=== PATIENT | female | born 1990 | race Hispanic/Latino ===

== ENCOUNTER 2017-10-04 03:13 | Emergency (ER) | payer SELFPAY ==
[2017-10-04] MEDS ORDERED: SODIUM CHLORIDE 0.9% 1000ML 1,000 ML IV ONE (03:27)
[2017-10-04] MEDS ORDERED: SODIUM CHLORIDE 0.9% 500ML 500 ML IV ONE (03:28)
[2017-10-04 03:39] LABS: BASOPHILS % (AUTO) 0.4 % (0.0-5.0); EOSINOPHILS % (AUTO) 4.9 % (0.0-8.0); HEMATOCRIT 37.8 % (36-48); LYMPHOCYTES % (AUTO) 44.7 % (21.0-51.0); MEAN CORPUSCULAR HEMOGLOBIN 27.3 pg (27.0-33.0); MEAN CORPUSCULAR HGB CONC 33.9 g/dL (32.0-36.0); MEAN CORPUSCULAR VOLUME 80.6 fL (79-99); MONOCYTES % (AUTO) 7.3 % (3.0-13.0); NEUTROPHILS % (AUTO) 42.7 % (40.0-77.0); PLATELET COUNT (AUTO) 174 K/uL (130-400); RED BLOOD CELL COUNT(AUTO) 4.69 MIL/uL (4.00-5.50); RED CELL DISTRIBUTION WIDTH 12.2 % (11.0-15.5); WHITE BLOOD COUNT (AUTO) 5.8 K/uL (4.8-10.8)
[2017-10-04 03:47] LABS: CREATININE 0.8 mg/dL (0.5-1.5); POTASSIUM 3.7 mmol/L (3.5-5.1)
[2017-10-04 03:51] LABS: ALBUMIN 3.7 g/dL (3.5-5.0); BILIRUBIN,TOTAL 0.4 mg/dL (0.2-1.0); TOTAL PROTEIN, SERUM 7.3 g/dL (6.0-8.3)
[2017-10-04] MEDS ORDERED: KETOROLAC TROMETHAMINE 30MG/ML ONE (03:54)
[2017-10-04 03:59] LABS: APPEARANCE,URINE Cloudy (CLEAR); BILIRUBIN,URINE Negative (NEGATIVE); COLOR,URINE Yellow (YELLOW); GLUCOSE, URINE (UA) Negative (NEGATIVE); KETONES,URINE Negative (NEGATIVE); LEUKOCYTE ESTERASE ,URINE Trace (NEGATIVE); NITRATE,URINE Negative (NEGATIVE); OCCULT BLOOD,URINE Nonhemolyzed Trace (NEGATIVE); PH,URINE 5.5 (5.0-8.0); PROTEIN,URINE Negative (NEGATIVE)
[2017-10-04 04:13] LABS: BACTERIA,URINE Few /HPF (None Seen); RBC,URINE 0-1 /HPF (0-1); SQUAMOUS EPITHELIAL CELL,UR Moderate /LPF (0-2); WBC,URINE 0-1 /HPF (0-1)
== END 2017-10-04 05:33 | disposition home or self-care (01) ==
LOC: EDH 03:13
DX: K80.50 Calculus of bile duct without cholangitis or cholecystitis without obstruction (principal); K80.20 Calculus of gallbladder without cholecystitis without obstruction; Z98.890 Other specified postprocedural states
CPT/HCPCS: 36415; 76705; 80053; 81001; 83690; 84703; 85025; 96361; 96374; 99285; J1885; J7030; J7040

== ENCOUNTER 2018-01-19 16:47 | Emergency (ER) | payer OTHER | END 2018-01-19 17:44 | disposition home or self-care (01) | LOC: EDH 16:47 | DX: J06.9 Acute upper respiratory infection, unspecified (principal) | CPT/HCPCS: 99281 ==

== ENCOUNTER 2018-08-21 08:04 | Emergency (ER) | payer OTHER | END 2018-08-21 09:39 | disposition home or self-care (01) | LOC: EDH 08:04 | DX: R11.2 Nausea with vomiting, unspecified (principal); R63.0 Anorexia; Z90.49 Acquired absence of other specified parts of digestive tract | CPT/HCPCS: 99281 ==

== ENCOUNTER 2020-10-18 11:52 | Day surgery (SDC) | payer MEDICAID ==
[~2020-10-18] VITALS: Ht 157.5 cm; Wt 98.1 kg
[2020-10-18] VITALS (17 sets, daily range): BP systolic 101–131; BP diastolic 43–86
[2020-10-18 12:41] LABS: BASOPHILS % (AUTO) 0.4 % (0.0-5.0); EOSINOPHILS % (AUTO) 0.8 % (0.0-8.0); HEMATOCRIT 40.2 % (36-48); MEAN CORPUSCULAR HEMOGLOBIN 27.7 pg (27.0-33.0); MEAN CORPUSCULAR HGB CONC 34.1 g/dL (32.0-36.0); MEAN CORPUSCULAR VOLUME 81.4 fL (79-99); MONOCYTES % (AUTO) 4.2 % (3.0-13.0); NEUTROPHILS % (AUTO) 58.4 % (40.0-77.0); PLATELET COUNT (AUTO) 194 K/uL (130-400); RED BLOOD CELL COUNT(AUTO) 4.94 MIL/uL (4.00-5.50); RED CELL DISTRIBUTION WIDTH 11.9 % (11.0-15.5); WHITE BLOOD COUNT (AUTO) 5.3 K/uL (4.8-10.8)
[2020-10-18] MEDS ORDERED: MONT10TA32 PO (12:57)
[2020-10-18] MEDS ORDERED: BENR30AU SQ (12:57)
[2020-10-18] MEDS ORDERED: FLUT1DIS4 IH (12:57)
[2020-10-18] MEDS ORDERED: [UNRECOGNIZED DRUG - CODE] PO (12:57)
[2020-10-18] MEDS ORDERED: ALBU8.5H8 IH (12:57)
[2020-10-18] MEDS ORDERED: LACTATED RINGERS 1000ML 1,000 ML IV ONE (13:03)
[2020-10-18] MEDS ORDERED: DEXAMETHASONE SOD PHOSPHATE 10MG/ML 1ML VIAL ONE (13:23)
[2020-10-18] MEDS ORDERED: LIDOCAINE PF 2% 5ML ABBOJECT ONE (13:23)
[2020-10-18] MEDS ORDERED: MIDAZOLAM HCL 1 MG/ML 2ML VIAL ONE (13:24)
[2020-10-18] MEDS ORDERED: PROPOFOL 10 MG/ML 20ML VIAL IV ONE (13:25)
[2020-10-18] MEDS ORDERED: ONDANSETRON HCL 4 MG/2 ML VIAL ONE ×2 (13:25→14:09)
[2020-10-18] MEDS ORDERED: FENTANYL CITRATE PF 50 MCG/1 ML 2ML VIAL ONE (13:25)
[2020-10-18] MEDS ORDERED: MEPERIDINE-PF 25 MG/ML SYG ONE (13:28)
[2020-10-18] MEDS ORDERED: METOCLOPRAMIDE 10 MG/2 ML VIAL ONE (14:09)
== END 2020-10-18 15:50 | disposition home or self-care (01) ==
LOC: DAH 11:52
PROVIDERS: ATTEND Obstetrics & Gynecology
DX: O03.4 Incomplete spontaneous abortion without complication (principal); J45.909 Unspecified asthma, uncomplicated
CPT/HCPCS: 36415; 59812; 84703; 85025; 86850; 86900; 86901; 87426; A4215; A4221; A4222; A4223; A4351; A4649; A4663; A7002; J1100; J2001; J2175; J2250; J2405 ×2; J2704; J2765; J3010; J7030; J7120

== ENCOUNTER 2020-10-28 22:56 | Emergency (ER) | payer MEDICAID ==
[~2020-10-28 22:56] MED LIST: ALBU8.5H8 IH; BENR30AU SQ; FLUT1DIS4 IH; MONT-39 PO; [UNRECOGNIZED DRUG - CODE] PO
[2020-10-28] MEDS ORDERED: ACETAMINOPHEN 500 MG TABLET ONE (23:18)
[2020-10-28 23:47] LABS: BASOPHILS % (AUTO) 0.2 % (0.0-5.0); HEMATOCRIT 38.8 % (36-48); LYMPHOCYTES % (AUTO) 23.1 % (21.0-51.0); MEAN CORPUSCULAR HEMOGLOBIN 27.4 pg (27.0-33.0); MEAN CORPUSCULAR VOLUME 80.5 fL (79-99); MONOCYTES % (AUTO) 8.5 % (3.0-13.0); NEUTROPHILS % (AUTO) 67.2 % (40.0-77.0); PLATELET COUNT (AUTO) 157 K/uL (130-400); RED BLOOD CELL COUNT(AUTO) 4.82 MIL/uL (4.00-5.50); RED CELL DISTRIBUTION WIDTH 11.9 % (11.0-15.5); WHITE BLOOD COUNT (AUTO) 5.1 K/uL (4.8-10.8)
[2020-10-28 23:58] LABS: CREATININE 0.9 mg/dL (0.5-1.5); POTASSIUM 3.3 mmol/L (3.5-5.1)
[2020-10-29 00:02] LABS: ALBUMIN 3.9 g/dL (3.5-5.0); BILIRUBIN,TOTAL 0.7 mg/dL (0.2-1.0); TOTAL PROTEIN, SERUM 7.8 g/dL (6.0-8.3)
[2020-10-29 00:08] LABS: APPEARANCE,URINE Turbid (CLEAR); BILIRUBIN,URINE Small (NEGATIVE); COLOR,URINE Dark Yellow (YELLOW); GLUCOSE, URINE (UA) Negative (NEGATIVE); KETONES,URINE Trace mg/dL (NEGATIVE); LEUKOCYTE ESTERASE ,URINE Small (NEGATIVE); NITRATE,URINE Negative (NEGATIVE); OCCULT BLOOD,URINE Large (NEGATIVE); PH,URINE 5.5 (5.0-8.0); PROTEIN,URINE POS 1+ mg/dL (NEGATIVE)
[2020-10-29] MEDS ORDERED: KCL 20 MEQ ERTAB PO ONE (00:55)
[2020-10-29 00:57] LABS: AMORPHOUS SEDIMENT,UR Many /LPF (None Seen); BACTERIA,URINE Few /HPF (None Seen); SQUAMOUS EPITHELIAL CELL,UR Many /HPF (0-2)
[2020-10-29 01:04] LABS: HCG,QUAL RESULT NEGATIVE (NEGATIVE)
== END 2020-10-29 01:04 | disposition home or self-care (01) ==
LOC: EDH 22:56
DX: B34.9 Viral infection, unspecified (principal); R50.84 Febrile nonhemolytic transfusion reaction; Z20.822 Contact with and (suspected) exposure to COVID-19; J45.909 Unspecified asthma, uncomplicated; Z90.49 Acquired absence of other specified parts of digestive tract
CPT/HCPCS: 36415; 71045; 80053; 81001; 81025; 85025; 87088; 87426; 87804 ×2; 87880; 99284; U0003